=== PATIENT | male | born 1945 | race Caucasian/White ===

== ENCOUNTER 2016-11-09 11:19 | Emergency (ER) | payer MEDICARE, OTHER ==
[~2016-11-09] VITALS: Ht 172.7 cm; Wt 68.0 kg
[~2016-11-09 11:19] MED LIST: OMEP20CA5 PO
[2016-11-09 11:26] VITALS: BP 180/87; PULSE 94; RESP 16; O2SAT 98
== END 2016-11-09 15:00 | disposition left against medical advice (07) ==
LOC: NED 11:19
DX: F10.10 Alcohol abuse, uncomplicated (principal)
CPT/HCPCS: 99281

== ENCOUNTER 2016-12-10 15:11 | Emergency (ER) | payer MEDICARE, OTHER ==
[~2016-12-10] VITALS: Ht 167.6 cm; Wt 61.4 kg
[2016-12-10 15:15] VITALS: BP 125/68; PULSE 104; RESP 14; TEMP 98.6; O2SAT 97
--- NOTE | 2016-12-10 18:29 | PD ---
HPI Chief Complaint: Psychiatric Symptoms Time Seen by Provider: 18:29 Travel History International Travel<30 days: No Contact w/Intl Traveler<30days: No Traveled to known affect area: No History of Present Illness HPI 71-year-old male presents the emergency Department voluntarily with reports of wanting to kill himself. Patient states he is a chronic alcoholic with history of seizure disorder, previously treated with Dilantin which he has not been taking for months. Patient also has a history of hypertension for which she has not been taking any medications for. Patient states he has been drinking a lot, and wants to kill himself and plans to take a handful of pills. He also complains of central lower sternal pain which has been present for several weeks. He states it's worse with movement and with cough. He has a history of gastritis. Patient denies increased pain with exertion, but does state that he has noticed past several months that with walking he needs to stop and rest for frequently. Patient has history of CABG in the distant past. Patient has chronic back pain but nothing more than usual. Patient has a history of seizures when withdrawing from alcohol. He is noted to be tachycardic and hypertensive. He has a history of allergy to penicillin. PFSH Past Medical History Hx Anticoagulant Therapy: No Arthritis: No Asthma: No Autoimmune Disease: No Blood Disorders: No Bipolar Disorder: Yes Anxiety: No Depression: Yes Heart Rhythm Problems: No Cancer: No Cardiac Catheterization: No Cardiovascular Problems: Yes High Cholesterol: No Chemotherapy: No Chest Pain: No Congestive Heart Failure: No COPD: No Cerebrovascular Accident: No Diabetes: No Diminished Hearing: Yes Endocrine: No GERD: No Genitourinary: No Headaches: No Hiatal Hernia: No Hypertension: Yes Immune Disorder: No Implanted Vascular Access Dvce: No Kidney Stones: No Musculoskeletal: No Neurologic: No Psychiatric: Yes Reproductive: No Respiratory: Yes Immunizations Current: No Migraines: No Myocardial Infarction: Yes Pneumonia: Yes Radiation Therapy: No Renal Failure: No Seizures: Yes Sickle Cell Disease: No Sleep Apnea: No Thyroid Disease: No Ulcer: No PNEUMOCCOCAL Vaccine (Year): 2 Past Surgical History AICD: No Arteriovenous Shunt: No Cardiac Surgery: Yes Cholecystectomy: Yes Coronary Artery Bypass Graft: Yes (quad bypass) Insulin Pump: No Joint Replacement: No Neurologic Surgery: No Pacemaker: No Other Surgery: Yes Social History Alcohol Use: Yes (heavy) Tobacco Use: No Substance Use: No Allergies-Medications (Allergen,Severity, Reaction): Coded Allergies: Penicillin (Verified Allergy, Severe, RASH, 12/10/16) Reported Meds & Prescriptions Reported Meds & Active Scripts Active Reported Hydrochlorothiazide 25 Mg Tab 25 Mg PO DAILY Dilantin (Phenytoin Extended) 100 Mg Cap 100 Mg PO TID Review of Systems Except as stated in HPI: all other systems reviewed are Neg General / Constitutional: No: Fever Eyes: No: Visual changes HENT: No: Headaches Cardiovascular: Positive: Chest Pain or Discomfort, Dyspnea on exertion (see history of present illness) Respiratory: No: Shortness of Breath Gastrointestinal: No: Nausea, Vomiting, Diarrhea, Abdominal Pain Genitourinary: No: Dysuria Musculoskeletal: No: Pain Skin: No Rash Neurologic: No: Weakness Psychiatric: No: Depression Endocrine: No: Polydipsia Hematologic/Lymphatic: No: Easy Bruising Physical Exam Narrative GENERAL: Patient is cooperative and appears in no acute distress. SKIN: Warm and dry. Normal color. Normal turgor. HEAD: Atraumatic. Normocephalic. Nontender. EYES: Pupils equal and round. No scleral icterus. No injection or drainage. ENT: No nasal bleeding or discharge. Mucous membranes pink and moist. Pharynx is clear. Airway is patent. NECK: Trachea midline. No JVD. Neck is supple nontender. CARDIOVASCULAR: Tachycardic rate and normal rhythm. RESPIRATORY: No accessory muscle use. Clear to auscultation. Breath sounds equal bilaterally. No murmurs gallops or rubs. Patient is tender with palpation of the base of the sternum and along the xiphoid. GASTROINTESTINAL: Abdomen soft, non-tender, nondistended. Hepatic and splenic margins not palpable. No CVA tenderness. MUSCULOSKELETAL: Extremities without clubbing, cyanosis, or edema. No obvious deformities. NEUROLOGICAL: Awake and alert. No obvious cranial nerve deficits. Motor grossly within normal limits. Five out of 5 muscle strength in the arms and legs. Normal speech. PSYCHIATRIC: Appropriate mood and affect; insight and judgment normal. Patient is suicidal with a plan. He is cooperative. Data Data Last Documented VS Vital Signs Date Time Temp Pulse Resp B/P Pulse Ox O2 Delivery O2 Flow Rate FiO2 12/10/16 20:36 78 18 126/58 95 Nasal Cannula 2 12/10/16 15:15 98.6 Orders Electrocardiogram (12/10/16 18:38) Ckmb (Isoenzyme) Profile (12/10/16 18:38) Complete Blood Count With Diff (12/10/16 18:38) Comprehensive Metabolic Panel (12/10/16 18:38) Magnesium (Mg) (12/10/16 18:38) Prothrombin Time / Inr (Pt) (12/10/16 18:38) Act Partial Throm Time (Ptt) (12/10/16 18:38) Troponin I (12/10/16 18:38) Lipase (12/10/16 18:38) Chest, Single Ap (12/10/16 18:38) Ecg Monitoring (12/10/16 18:38) Bilateral Bp Monitoring (12/10/16 18:38) Iv Access Insert/Monitor (12/10/16 18:38) Oximetry (12/10/16 18:38) Oxygen Administration (12/10/16 18:38) Aspirin Chew (Aspirin Chew) (12/10/16 18:45) Sodium Chloride 0.9% Flush (Ns Flush) (12/10/16 18:45) Metoprolol Tartrate Inj (Lopressor Inj) (12/10/16 18:45) Sodium Chlorid 0.9% 500 Ml Inj (Ns 500 M (12/10/16 18:45) Drug Screen, Random Urine (12/10/16 18:38) Alcohol (Ethanol) (12/10/16 18:38) Psych Screen (12/10/16 18:38) Lorazepam (Ativan) (12/10/16 18:45) Chlordiazepoxide (Librium) (12/10/16 18:45) Pantoprazole Inj (Protonix Inj) (12/10/16 18:45) Al-Mag Hy-Si 40-40-4 Mg/Ml Liq (Mag-Al P (12/10/16 18:45) Lidocaine 2% Viscous (Xylocaine 2% Visco (12/10/16 18:45) CKMB (12/10/16 18:55) CKMB% (12/10/16 18:55) Metoprolol Tartrate Inj (Lopressor Inj) (12/10/16 20:30) Diet Heart Healthy (12/11/16 Breakfast) Diet Heart Healthy (12/10/16 Dinner) Labs Laboratory Tests Test 12/10/16 18:55 White Blood Count 5.8 TH/MM3 Red Blood Count 4.80 MIL/MM3 Hemoglobin 15.6 GM/DL Hematocrit 43.9 % Mean Corpuscular Volume 91.6 FL Mean Corpuscular Hemoglobin 32.6 PG Mean Corpuscular Hemoglobin 35.6 % Concent Red Cell Distribution Width 13.9 % Platelet Count 141 TH/MM3 Mean Platelet Volume 6.9 FL Neutrophils (%) (Auto) 58.0 % Lymphocytes (%) (Auto) 25.1 % Monocytes (%) (Auto) 13.9 % Eosinophils (%) (Auto) 2.2 % Basophils (%) (Auto) 0.8 % Neutrophils # (Auto) 3.4 TH/MM3 Lymphocytes # (Auto) 1.5 TH/MM3 Monocytes # (Auto) 0.8 TH/MM3 Eosinophils # (Auto) 0.1 TH/MM3 Basophils # (Auto) 0.0 TH/MM3 CBC Comment DIFF FINAL Differential Comment Prothrombin Time 10.8 SEC Prothromb Time International 1.0 RATIO Ratio Activated Partial 27.2 SEC Thromboplast Time Sodium Level 136 MEQ/L Potassium Level 3.5 MEQ/L Chloride Level 98 MEQ/L Carbon Dioxide Level 26.3 MEQ/L Anion Gap 12 MEQ/L Blood Urea Nitrogen 9 MG/DL Creatinine 1.03 MG/DL Estimat Glomerular Filtration 71 ML/MIN Rate Random Glucose 89 MG/DL Calcium Level 8.4 MG/DL Magnesium Level 2.2 MG/DL Total Bilirubin 1.2 MG/DL Aspartate Amino Transf 28 U/L (AST/SGOT) Alanine Aminotransferase 30 U/L (ALT/SGPT) Alkaline Phosphatase 82 U/L Total Creatine Kinase 206 U/L Creatine Kinase MB 6.3 NG/ML Troponin I 0.03 NG/ML Total Protein 7.8 GM/DL Albumin 4.5 GM/DL Lipase 89 U/L Ethyl Alcohol Level 108 MG/DL [facility] Medical Decision Making Medical Screen Exam Complete: Yes Emergency Medical Condition: Yes Differential Diagnosis Alcohol abuse. Suicidal ideation. Chest pain. Gastritis. Pancreatitis. Coronary syndrome. Narrative Course Patient is medically stable at time of exam. EKG is performed showing sinus rhythm at 93 bpm. There are nonspecific ST changes. It is unchanged from previous EKG. This is reviewed with Dr. Kocisco. Labs ordered including CBC, CMP, lipase, cardiac panel, urine drug screen, serum alcohol level. Patient is given aspirin 324 mg by mouth. He is given a GI cocktail by mouth. He is given lorazepam 1 mg by mouth. Patient is given metoprolol 5 mg every 5 minutes 3 per protocol. Patient is given pantoprazole 40 mg IV. Patient is given normal saline bolus of 500 mL's normal saline. Chest x-ray is ordered. CBC is within normal limits. CMP is unremarkable. Troponin is negative. Alcohol level is 108. Psychiatric evaluation is ordered pending medical clearance. Chest x-ray is negative for acute process per radiologist. Patient is reassessed at 2100 hrs. and felt to be improved. Patient is resting comfortably in the exam room. Patient is discussed with Dr. Fox. Patient is medically clear for psychiatric evaluation. Diagnosis Primary Impression: Depression with suicidal ideation Additional Impressions: Alcohol dependence Qualified Code: F10.220 - Alcohol dependence with uncomplicated intoxication Atypical chest pain Condition: Stable Jed Live Dec 10, 2016 18:29
[2016-12-10 18:30] VITALS: BP 182/103; PULSE 101; RESP 20; O2SAT 95
[2016-12-10] MEDS ORDERED: LORazepam 1 MG TAB PO ONE (18:45)
[2016-12-10] MEDS ORDERED: SODIUM CHLORIDE 0.9% FLUSH 5 ML FLUSH IVF PRN (18:45)
[2016-12-10] MEDS ORDERED: chlordiazePOXIDE 25 MG CAP PO PRN (18:45)
[2016-12-10] MEDS ORDERED: PANTOPRAZOLE SODIUM 40 MG VIAL IVP ONE (18:45)
[2016-12-10] MEDS ORDERED: SODIUM CHLORID 0.9% 500 ML INJ 500 ML IV ONE (18:45)
[2016-12-10] MEDS ORDERED: ALUMINUM/MAGNESIUM/SIMETH 30 ML CUP PO ONE (18:45)
[2016-12-10] MEDS ORDERED: DILA100C PO (18:45)
[2016-12-10] MEDS ORDERED: LIDOCAINE VISCOUS 2% SOLN 15 ML UDC PO ONE (18:45)
[2016-12-10] MEDS ORDERED: HYDR25TA5 PO (18:45)
[2016-12-10] MEDS ORDERED: ASPIRIN 81 MG CHEW TAB PO ONE (18:45)
[2016-12-10 18:46] VITALS: RESP 18; O2SAT 94
[2016-12-10] MEDS: METOPROLOL TARTRATE 5 MG/5 ML VIAL IVS SCH ×6 (18:50→20:40)
--- NOTE | 2016-12-10 19:28 | RADRPT ---
EXAM DATE/TIME: 12/10/2016 19:02 [facility] COMPARISON: CHEST SINGLE AP, May 05, 2016, 13:38. INDICATIONS : Chest pain. MEDICAL HISTORY : None. SURGICAL HISTORY : CABG. ENCOUNTER: Initial ACUITY: 1 day PAIN SCORE: 10/10 LOCATION: middle chest. FINDINGS: A single view of the chest demonstrates mild basilar opacity most characteristic of atelectasis. Post operative median sternotomy. No pneumothorax. No significant effusion. CONCLUSION: 1. Minimal basilar atelectasis. Postoperative median sternotomy and CABG Aguilar Sims MD on December 10, 2016 at 19:25 Board Certified Radiologist. This report was verified electronically.
[2016-12-10 19:47] LABS: AUTOMATED NEUTROPHIL # 3.4 TH/MM3 (1.8-7.7); BASOPHIL % 0.8 % (0.0-2.0); EOSINOPHIL # 0.1 TH/MM3 (0-0.4); EOSINOPHIL % 2.2 % (0.0-4.0); HEMATOCRIT 43.9 % (39.0-51.0); HEMO FLAGS DIFF FINAL; LYMPH % 25.1 % (9.0-44.0); LYMPHOCYTE # 1.5 TH/MM3 (1.0-4.8); MEAN CELL VOLUME 91.6 FL (80.0-100.0); MEAN CORPUSCULAR HEMOGLOBIN 32.6 PG (27.0-34.0); MEAN CORPUSCULAR HGB CONC 35.6 % (32.0-36.0); MONO % 13.9 % (0.0-8.0); PLATELET COUNT 141 TH/MM3 (150-450); RED CELL DISTRIBUTION WIDTH 13.9 % (11.6-17.2); WHITE BLOOD COUNT 5.8 TH/MM3 (4.0-11.0)
[2016-12-10 19:56] LABS: APTT (PATIENT) 27.2 SEC (24.3-30.1); PROTHROMBIN TIME - PATIENT 10.8 SEC (9.8-11.6)
[2016-12-10 19:59] LABS: ANION GAP 12 MEQ/L (5-15); AST (GOT) 28 U/L (15-37); BICARBONATE 26.3 MEQ/L (21.0-32.0); BLOOD UREA NITROGEN 9 MG/DL (7-18); CHLORIDE 98 MEQ/L (98-107); GLOMERULAR FILTRATION RATE 71 ML/MIN (>89); MAGNESIUM 2.2 MG/DL (1.5-2.5); POTASSIUM 3.5 MEQ/L (3.5-5.1); SODIUM (NA) 136 MEQ/L (136-145)
[2016-12-10 20:02] LABS: ALKALINE PHOSPHATASE 82 U/L (45-117); ALT (GPT) 30 U/L (12-78); CREATINE KINASE 206 U/L (39-308); TOTAL BILIRUBIN ADULT 1.2 MG/DL (0.2-1.0)
[2016-12-10 20:14] LABS: CKMB 6.3 NG/ML (0.5-3.6)
[2016-12-10 20:17] VITALS: BP 108/56; PULSE 75; RESP 16; O2SAT 95
[2016-12-10 20:36] VITALS: BP 126/58; PULSE 78; RESP 18; O2SAT 95
[2016-12-10 22:30] VITALS: BP 114/59; PULSE 74; RESP 18; O2SAT 96
[2016-12-11 02:30] VITALS: BP 109/68; PULSE 84; RESP 16; O2SAT 96
[2016-12-11 05:00] VITALS: BP 118/65; PULSE 72; RESP 18
[2016-12-11 08:50] VITALS: BP 138/80; PULSE 73; RESP 15; O2SAT 97
[2016-12-11 11:20] VITALS: BP 180/84; PULSE 98; RESP 18; TEMP 97.8; O2SAT 98
[2016-12-11] MEDS ORDERED: LORazepam 2 MG TAB PO PRN (13:30)
[2016-12-11 14:12] VITALS: BP 180/84; PULSE 98; RESP 18; O2SAT 98
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
--- NOTE | 2016-12-11 18:01 | EKG ---
Date Performed: 12/10/2016 Time Performed: 18:47:20 PTAGE: 71 years EKG: Sinus rhythm POSSIBLE LEFT ATRIAL ENLARGEMENT NONSPECIFIC ST & T-WAVE ABNORMALITY Since previous tracing, no sign ificant change noted BORDERLINE ECG PREVIOUS TRACING : 05/05/2016 13.27 DOCTOR: Manjit Blair Interpretating Date/Time 12/11/2016 18:00:35
== END 2016-12-11 15:11 | disposition home or self-care (01) ==
LOC: NEPA 15:11 → NEPJ 12-11 15:11
DX: F10.220 Alcohol dependence with intoxication, uncomplicated (principal); F32.9 Major depressive disorder, single episode, unspecified; R07.9 Chest pain, unspecified; R05 Cough; R94.31 Abnormal electrocardiogram [ECG] [EKG]; I10 Essential (primary) hypertension
CPT/HCPCS: 71010; 80053; 80320; 82550; 82552; 83690; 83735; 84484; 85025; 85610; 85730; 93005; 96361; 96374; 96375; 99285; C9113; J7040